=== PATIENT | male | born 1985 | race Caucasian/White ===

== ENCOUNTER 2022-01-13 10:26 | Emergency (ER) | payer OTHER, SELFPAY ==
[2022-01-13 10:36] VITALS: BP 144/94; PULSE 82; RESP 18; TEMP 36.4; O2SAT 99
--- NOTE | 2022-01-13 10:50 | ED.URI ---
HPI - URI/Sore Throat General Chief Complaint: Upper Respiratory Infection Stated Complaint: Sore Throat Time Seen by Provider: 01/13/22 10:50 Source: patient Mode of arrival: ambulatory Limitations: no limitations History of Present Illness HPI Narrative: 36-year-old male presents with complaint sore throat, nasal congestion, mild cough, low-grade fever. Has had symptoms for 3 days. Reports that throat is worse in morning and gets better throughout the day. 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 States he is feeling better from when symptoms 1st started. Denies nausea vomiting diarrhea. No chest pain or shortness of breath. Does not want COVID testing. States his son had strep 1 week ago. All systems reviewed and negative except as noted above. Related Data Home Medications Medication Instructions Recorded Confirmed No Home Medications 01/13/22 01/13/22 Allergies Allergy/AdvReac Type Severity Reaction Status Date / Time No Known Allergies Allergy Verified 01/13/22 10:42 Review of Systems Review of Systems: CONSTITUTIONAL: Reports low-grade fever. Denies chills, or sweats. EYES: Denies visual changes, redness, or discharge. ENT: report rhinorrhea, congestion, sore throat. Deniesotalgia. CARDIOVASCULAR: Denies chest pain, palpitations, or edema. RESPIRATORY: report cough. Denies dyspnea. GASTROINTESTINAL: Denies abdominal pain, nausea, vomiting, or diarrhea. GENITOURINARY: Denies dysuria or hematuria. SKIN: Denies rash or itching. MUSCULOSKELETAL: Denies back pain, joint pain, or myalgia. NEUROLOGIC: Denies headache, numbness, or weakness. PSYCHIATRIC: Denies anxiety or depression. All other systems reviewed are negative, except as documented in HPI. [facility] Family History Family History (Updated 10/18/16 @ 08:46 by DOCTOR UNKNOWN) Grandparent Cerebrovascular accident Family history of Alzheimer's disease Family history of throat cancer Mother Patient's mother is in good health Father Patient's father is in good health Social History Social History Smoking status: Never smoker Alcohol intake: current Comments At time of signature, agree with nursing past medical, surgical, social and family history. There is no relevant family history pertinent to the presenting complaint. Exam Narrative: GENERAL: This is a well-nourished, well-developed patient, in no apparent distress. HEAD: normocephalic, atraumatic. EYES: PERRL. Sclera clear/white. Vision is grossly intact. EARS: External ears normal, auditory canals clear and without drainage, TMs normal without perforation. Hearing grossly intact. NOSE: External nose normal with no obvious nasal discharge, nares without redness, no rhinorrhea. THROAT: Mucous membranes moist, mild erythema to posterior pharynx with clear postnasal drainage. NECK: Neck supple, non-tender without lymphadenopathy, masses or thyromegaly. CARDIOVASCULAR: Regular rate and rhythm without murmurs, gallops, or rubs. RESPIRATORY: Clear to auscultation. Breath sounds equal bilaterally. No wheezes, rales, or rhonchi. SKIN: warm, Dry, intact with no suspicious lesions or rash, good texture and turgor. NEURO: awake, alert, and oriented to person, place and time. There were no obvious focal neurologic abnormalities. EXTREMITIES: No joint tenderness, effusion, or edema noted. Course Course Level of Care: Express Care Visit Vital Signs Vital signs: Vital Signs Temperature 36.4 C L 01/13/22 10:36 Pulse Rate 82 01/13/22 10:36 Respiratory Rate 18 01/13/22 10:36 Blood Pressure 144/94 H 01/13/22 10:36 Pulse Oximetry 99 01/13/22 10:36 Oxygen Delivery Room Air 01/13/22 10:36 Temperature 36.4 C L 01/13/22 10:36 Pulse Rate 82 01/13/22 10:36 Respiratory Rate 18 01/13/22 10:36 Blood Pressure 144/94 H 01/13/22 10:36 Pulse Oximetry 99 01/13/22 10:36 Oxygen Delivery Room Air 01/13/22 10:36 reviewed
== END 2022-01-13 11:00 | disposition home or self-care (01) ==
PROVIDERS: Emergency Provider Nurse Practitioner Family
DX: J02.9 Acute pharyngitis, unspecified (principal)
CPT/HCPCS: 87081; 87880; 99213; G0463

== ENCOUNTER 2023-05-22 00:55 | Day surgery (SDC) | payer OTHER, SELFPAY ==
[2023-05-15 12:10] VITALS: BMI 28.2
--- NOTE | 2023-05-15 12:13 | PC.NURSE ---
Report to the Outpatient Waiting Room, entrance under the green pavilion located off [facility], at time 0600 on date 05/22/23. Planned Procedure Time: 0730. Time changes happen often and if your time is changed the preop area will call you the afternoon before. - You and your visitor will be asked to self-screen and do not enter if you have any COVID symptoms. - A mask is optional within the hospital at this time. Patients may have clear liquids (water, carbonated beverages, clear teas, apple juice) until 3 hours prior to surgery with a maximum of 20 ounces. - No food from midnight until time of surgery Take the following medications with a SIP of water the morning of surgery: N/A DO NOT STOP ANY OF YOUR OTHER PRESCRIPTION MEDICATIONS PRIOR TO SURGERY ?EXCEPT THE FOLLOWING Medications to discontinue per physician: N/A Date to take last dose: N/A Please no make-up, nail english, hairspray, perfume, deodorant, or body powder the day of surgery. No jewelry (including any body piercings) or valuables the day of surgery, leave them at home. Please take a shower or bath the night before, or the morning of, surgery with an antibacterial soap. Wear comfortable, loose fitting clothing. - Jewelry must be removed prior to entering the operating room. Rings and piercings that are not removed may be cut off. - The hospital will not accept responsibility for valuables. - Please leave all valuables, including medications, at home the day of surgery. If you are going home after surgery, a licensed road oiling truck driver must drive you home. - NO public transportation without another adult if you receive anesthesia. - We recommend that an adult stay with you for 24 hours following discharge. - We also recommend that you do not drive, make important decision, drink alcoholic beverages, or take any drugs that were not prescribed by your health care provider for at least 24 hours after your discharge time. Follow any additional instructions given to you from your surgeon. If you or anyone in your household have experienced Covid symptoms in the past week, please notify your surgeon or the nurse liaison at the phone number below for possible testing. Telephone instructions given to WILLARD FONTANA and asked if any additional questions and then verbalized understanding. Patient advised to call surgeon office or pre surgery nurse liaison [phone] if any additional questions.
[2023-05-22] VITALS (9 sets, daily range): BP systolic 107–142; BP diastolic 66–94; PULSE 77–88; RESP 10–16; TEMP 36.3–36.7; O2SAT 96–99; BMI 28.9
[2023-05-22] MEDS: ACETAMINOPHEN 500 MG TABLET 1000 MG PO (06:31)
[2023-05-22] MEDS: KETOROLAC 15 MG/ML VIAL (*BKC) IV PUSH (06:31)
[2023-05-22] MEDS: LACTATED RINGERS 1,000 ML 30 ML IV CONT ×2 (06:34→08:29)
--- NOTE | 2023-05-22 07:18 | P.PNAN_ITS ---
Anes - Initial Pre Proc Eval Procedure: Operation Date: 05/22/23 07:30 Proposed Procedures p Open Umbilical Hernia with Mesh - Arturo Scott DO Date/Time: 05/22/23 07:18 Surgeon: Arturo Scott DO Pre Op Diagnosis: Umb Hernia 1cm Patient Data Age: 37 Gender: M Height: 1.68 m Weight: 81.3 kg Last Vital Signs Temp 98.1 F 05/22/23 06:40 Pulse 87 05/22/23 06:40 Resp 14 05/22/23 06:40 BP 142/94 H 05/22/23 06:40 Pulse Ox 98 05/22/23 06:40 O2 Del Method Room Air 05/22/23 06:40 Allergies Allergy/AdvReac Type Severity Reaction Status Date / Time No Known Allergies Allergy Verified 05/22/23 06:20 Home Medications Medication Instructions Recorded Confirmed Type No Home Medications 05/15/23 05/22/23 History Patient hx anesthesia problems: none Family hx anesthesia problems: none Results Review: All pre-operative results and documents have been reviewed as part of the pre- operative evaluation. [facility] Past Medical History Medical History Beta thalassemia minor Encounter to establish care Long-term current use of testosterone replacement therapy Umbilical hernia Surgical History Surgical History H/O: vasectomy Family History Family History Grandparent Cerebrovascular accident Family history of Alzheimer's disease Family history of throat cancer Mother Patient's mother is in good health Father Patient's father is in good health Social History Social History Smoking status: Never smoker Alcohol intake: current Drinks per week: 3 Alcohol use details: Occasionally Substance use: never Substance use type: does not use Living arrangements: with family Occupation/Education: occupation 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 Informed Consent: The patient's anesthetic plan and its attendant risks and benefits were discussed with the patient/family/POA. Questions were solicited and answers provided to the satisfaction of the patient/family/POA.
--- NOTE | 2023-05-22 07:20 | WPDHPUPDATE1 ---
History and Physical Update Update Date/Time: 05/22/23 07:20 History and Physical has been reviewed, including an updated exam of the patient. There are NO changes in the patient's condition. Risks, benefits, and alternatives have been discussed and questions answered. Patient agrees to proceed with procedure.
--- NOTE | 2023-05-22 07:20 | PM.IMHP ---
H&P: HPI History of Present Illness Date/Time: 05/22/23 07:20 Chief Complaint: umbilical hernia Narrative: 37 yo man presents for umbilical hernia repair. He reports no changes since last seen in office. Review of Systems Review of Systems: All systems reviewed & are unremarkable except as noted in HPI and below Constitutional: Constitutional: Denies chills, Denies fever(s), Denies headache(s) and Denies weight loss Eyes: Eyes: Denies change in vision ENT: Denies dizziness, Denies headache(s), Denies neck mass and Denies throat swelling Cardiovascular: Cardiovascular: Denies chest pain, Denies lightheadedness and Denies dyspnea Respiratory: Respiratory: Denies cough, Denies dyspnea and Denies wheezing Gastrointestinal: Gastrointestinal: Denies abdominal pain, Denies change in bowel habits, Denies nausea and Denies vomiting Genitourinary: Genitourinary: Denies hematuria and Denies dysuria Musculoskeletal: Musculoskeletal: Reports as per HPI Integumentary/Breasts: Skin/Breast: Reports as per HPI Neurologic: Denies dizziness and Denies headache(s) Allergic/Immunologic: Allergic/Immunologic: Denies throat swelling and Denies wheezing PMF Past Medical History Medical History Beta thalassemia minor Encounter to establish care Long-term current use of testosterone replacement therapy Umbilical hernia Surgical History Surgical History H/O: vasectomy Family History Family History Grandparent Cerebrovascular accident Family history of Alzheimer's disease Family history of throat cancer Mother Patient's mother is in good health Father Patient's father is in good health Social History Social History Smoking status: Never smoker Alcohol intake: current Drinks per week: 3 Alcohol use details: Occasionally Substance use: never Substance use type: does not use Living arrangements: with family Occupation/Education: occupation 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 Spiritual care concerns: No Meds Home Medications and Allergies Home Medications Medication Instructions Recorded Confirmed Type No Home Medications 05/15/23 05/22/23 History Allergies Allergy/AdvReac Type Severity Reaction Status Date / Time No Known Allergies Allergy Verified 05/22/23 06:20 Vital Signs Vital Signs - 24 hr 05/22/23 06:40 Temperature 36.7 C Pulse Rate 87 Respiratory Rate 14 Blood Pressure 142/94 H Pulse Oximetry 98 Oxygen Delivery Room Air Exam Const: General: no acute distress and alert Orientation/consciousness: patient oriented x3 HENMT: Head: normocephalic and atraumatic Ears: hearing grossly normal bilaterally Face/Nose/Sinus: Normal nares present Mouth: Yes Normal oral and palatal mucosa present Eyes: Periorbital: periorbital findings normal Sclera: sclerae normal EOM: EOMs intact bilaterally Neck: Neck: normal visual inspection, no lymphadenopathy and trachea midline Chest: Chest palpation & inspection: normal inspection of the chest Resp: Effort & Inspection: normal respiratory effort Auscultation: clear to auscultation bilaterally Cardio: Jugular venous distension: no JVD Rate: regular rate Rhythm: regular rhythm Heart sounds: S1 normal heart sound present and S2 normal heart sound present Peripheral pulses: Peripheral pulses 2+ throughout GI: Inspection: normal to inspection GI Palp: Yes Soft to palpation, No Tenderness to palpation present (GI), No Guarding due to palpation present (GI), Yes Hernia present umbilical < 3 cm and No Rebound tenderness present Percussion: Yes normal to percussion Auscultation: normal bowel sounds : General: Yes no CVA tenderness Back/Spine/Pelvis: Back: no CVA tende
[2023-05-22] MEDS: ceFAZolin 2 GM/D5W 50 ML 2 GM/50 ML BAG IVPB (07:26)
[2023-05-22] MEDS: BUPIVACAINE/EPINEPHRINE 0.5% 50 ML VIAL 30 ML INFILTRATE (07:38)
--- NOTE | 2023-05-22 08:23 | P.OP_ITS ---
Procedure Note - Detailed Date of Procedure 05/22/23 Pre-op Diagnosis Umbilical hernia Post-op Diagnosis Same (1 cm umbilical hernia) Procedure Performed Open 1 cm umbilical hernia repair with 6.[address] hernia patch Surgeon Arturo Scott, DO Anesthesia General and Local (0.5% bupivacaine with epinephrine) Indications This is a 37-year-old man who presents with an umbilical hernia that he has had for about 1 year. He notices some discomfort with activity. He was found to have a 1 cm reducible umbilical hernia on exam. Discussions were made with the patient about treatment options and decision was made to proceed with open umbilical hernia repair with mesh. Findings Open umbilical hernia repair was performed. The patient was found to have a 1 cm umbilical hernia. The umbilical hernia sac was excised and sent to the lab for pathology. Then placed a [address] hernia patch within a preperitoneal pocket and secured the mesh in place using 0 Ethibond suture. No other abnormalities were noted. Description of Procedure Procedure as well as risks, benefits, and alternatives were discussed with the patient. Written consent was obtained and placed in chart prior to procedure. Patient was brought back to surgical suite. He was placed supine on operating table. He was then intubated by Anesthesia Department. His abdomen was prepped and draped in sterile fashion using chlorhexidine prep. 0.5% bupivacaine with epinephrine was infiltrated locally around the operative area. A 4 cm curvilinear incision was made just superior to the umbilicus using a 15 blade scalpel. Electrocautery was used for hemostasis and for dissection down through the subcutaneous fat. Hernia sac was encountered and this was carefully freed up from surrounding subcutaneous fat using electrocautery. The hernia sac was freed up all the way down to the level of the fascia. The hernia sac was excised and sent to the lab for pathology. The umbilical stalk was then lifted off of the fascia with electrocautery. The hernia defect was then measured. This was measuring approximately 1 cm. The decision was made to use a 6.[address] hernia patch. The peritoneum was cleared under the fascia circumferentially around the hernia using blunt dissection and electrocautery. Once a wide enough pocket was created for the mesh, the mesh was then placed within this preperitoneal pocket and laid out flat centered on the hernia defect. The mesh appeared to be sitting in proper position. The mesh was then secured at the superior and inferior edges using 0 Ethibond U-stitch trans fasci al sutures. The fascia was then closed over the mesh and the anterior flanges of the mesh were incorporated with the fascial repair using 0 Ethibond [id number] sutures. A total of 3 sutures were placed transversely. The repair was inspected and appeared secure. 0.5% bupivacaine with epinephrine was infiltrated around the fascia and subcutaneous space. The umbilical stalk was then reapproximated to the fascia using a 3 0 Vicryl simple interrupted suture. The deep dermis was reapproximated using 3 0 Vicryl simple interrupted sutures, and then the skin was approximated using 4 Monocryl running subcuticular suture. Exofin glue was then applied on top. The patient was then awakened from anesthesia, extubated, and transferred to recovery. Implants 6.[address] hernia patch Estimated Blood Loss 5 Pathology Yes (Umbilical hernia sac) Complications No immediate complications Condition Stable Disposition Same day [facility] Billing Surgery - Charge Forward: Surgery Billing
== END 2023-05-22 10:24 | disposition home or self-care (01) ==
PROVIDERS: PCP Nurse Practitioner Family; Visit Provider Surgery
PROC: (CPT 49591; principal; 2023-05-22 07:30)
DX: K42.9 Umbilical hernia without obstruction or gangrene (principal); D56.3 Thalassemia minor; Z98.890 Other specified postprocedural states; Z82.49 Family history of ischemic heart disease and other diseases of the circulatory system; Z80.1 Family history of malignant neoplasm of trachea, bronchus and lung
CPT/HCPCS: 49591; 88302; A9270; C1781; J0690; J1100; J1170; J1885; J2250; J2405; J2704; J3010; J7120